=== PATIENT | female | born 1945 | race Caucasian/White ===

== ENCOUNTER → 2018-04-15 | Outpatient (CLI) | payer MEDICARE, OTHER ==
[~2018-04-15] MED LIST: ASPI-292 PO; AZI250 PO; CIT500PT PO; FEXO-67 PO; GLUC1TAB13 PO; HYDR2TAB4 PO; IBUP800T37 PO; LYSI500T32 PO; LYSI500T34 PO; MAGN500C10 PO; [UNRECOGNIZED DRUG - OTHER] OU
--- NOTE | 2018-04-15 14:45 | RADIOLOGY IMAGING REPORT ---
FACILITY: [facility] PATIENT NAME: Nenita Michel : 1945 MR: [id number] V: [id number] EXAM DATE: ORDERING PHYSICIAN: KIRIT LOPEZ TECHNOLOGIST: Location: [facility] Patient: Nenita Michel : 1945 Visit/Account:[id number] Date of Sevice: 04/15/2018 DEXA Scan Clinical history: Screening. Postmenopausal.. Comparison: DEXA scan from 07/25/2013. LUMBAR SPINE: The bone mineral density (BMD) measured from L1-L4 correlates with a Z-score 0.4 and a T-score of -1 .2 which is consistent with osteopenia as defined by the World Health Organization. The correspondin g risk of fracture in the lumbar spine is increased 2-3 times compared with a young adult reference p opulation. This value has increased by 2.8 % since the prior study. More than 5% change is consider ed significant. HIP: Bone mineral density (BMD) measured in the Left total hip region correlates with a Z-score 0.7 and a T-score of -0.9 which is Normal as defined by the World Health Organization. The corresponding ris k of fracture in the hip is increased 1-2 times compared with a young adult reference population. The total hip value has decreased by 5.2 % since the prior study. More than 5% change is considered sig nificant. Bone mineral density (BMD) measured in the Femoral Neck region measures 0.875 g/cm2. IMPRESSION: 1. Lumbar spine: Osteopenia. There has been No significant change in the bone mineral density since the previous exam. 2. Left Hip: Normal. There has been a statistically significant decrease in the bone mineral densit y of the total hip since the previous exam. 3. Femoral Neck: Bone Mineral Density is 0.875 g/cm2 The next DEXA scan of this patient should include the following sites: L1-L4 and the left hip. FRAX? WHO Fracture Risk Assessment Tool link: <http://www.shef.ac.uk/FRAX/tool.jsp?locationValue=9> PLEASE NOTE: 1) The World Health Organization defines low BMD as follows: T-score Normal > -1 Osteopenia < -1 and > -2.5 Osteoporosis < -2.5 without fractures Established osteoporosis < -2.5 with fractures 2) In general, you may wish to consider: Diagnosis Treatment Follow-up DEXA Normal BMD Prevention 2-3 years Osteopenia Prevention/therapy 1-2 years Osteoporosis Therapy Yearly 3) Fracture risk estimated from the T-score is more accurate for vertebral fractures (often spontane ous) than for hip fractures. Report Dictated By: Feng Torres MD at 04/15/2018 2:36 PM Report E-Signed By: Feng Torres MD at 04/15/2018 2:41 PM WSN:[id number]
--- NOTE | 2018-04-15 15:47 | RADIOLOGY IMAGING REPORT ---
[facility] PATIENT NAME: AMINA YOUNG : [id number] MR: [id number] V: [id number] EXAM DATE: ORDERING PHYSICIAN: KIRIT LOPEZ TECHNOLOGIST: Poonam Thornton PROCEDURE:BILATERAL DIGITAL SCREENING MAMMOGRAM WITH CAD ASSISTED INTERPRETATION & 3D TOMOSYNTHESIS COMPARISON:Prior mammograms 08/13/16, 09/07/13, 08/24/13, 08/08/12, 06/04/11. INDICATIONS:breast cancer screening FINDINGS: Moderately dense fibroglandular tissue is seen throughout the breasts. The parenchymal pattern has remained stable allowing for difference in mammographic technique & patient positioning. There is no evidence of malignant appearing mass, malignant appearing calcifications or other secondary sign of malignancy in either breast. DIAGNOSTIC CATEGORY 1--NEGATIVE. RECOMMENDATIONS: ROUTINE MAMMOGRAM AND CLINICAL EVALUATION. IMPRESSION: BIRADS 1: Negative No significant abnormality is seen. Dictated by: Chelsea Mane M.D. on 04/15/2018 at 14:10 Transcribed by: THANIA on 04/15/2018 at 14:30 Approved by: Chelsea aMne M.D. on 04/15/2018 at 15:46 [facility]
== END ==
LOC: MAMO 03:10
PROVIDERS: ATTEND Emergency Medicine
DX: Z13.820 Encounter for screening for osteoporosis (principal); Z12.31 Encounter for screening mammogram for malignant neoplasm of breast; M85.88 Other specified disorders of bone density and structure, other site
CPT/HCPCS: 77063; 77067; 77080